=== PATIENT | male | born 1985 | race Two or more races ===

== ENCOUNTER 2020-12-11 02:27 | Emergency (ER) | payer SELFPAY ==
[~2020-12-11] VITALS: Ht 175.3 cm; Wt 86.2 kg
[2020-12-11 02:29] VITALS: BP 126/88
== END 2020-12-11 03:47 | disposition left against medical advice (07) ==
LOC: ER 02:30
DX: R10.13 Epigastric pain (principal); Z53.21 Procedure and treatment not carried out due to patient leaving prior to being seen by health care provider